=== PATIENT | male | born 1980 ===

== ENCOUNTER 2016-09-19 18:08 | Emergency (ER) | payer OTHER ==
[2016-09-19] MEDS ORDERED: Tetan/Diph/Pertus SYR(Tdap)* 0.5 ML SYR(BOOSTRIX) use SYR IM ONE (19:13)
--- NOTE | 2016-09-19 20:59 | UC ---
General HPI - HPI Summary HPI Summary: SMALL SHARP PEBBLE PUNCTURED HEEL OF RIGHT FOOT 1HR [employer]. LAST TETANUS STATUS UNKNOWN. - History of Current Complaint Chief Complaint: UCLowerExtremity Stated Complaint: SKIN COMPLAINT Time Seen by Provider: 09/19/16 19:04 Hx Obtained From: Patient Onset/Duration: Sudden Onset, Lasting Hours, Resolved Onset Severity: Mild Current Severity: Mild Pain Intensity: 0 Associated Signs & Symptoms: Positive: Trauma - Allergy/Home Medications Allergies/Adverse Reactions: Allergies Allergy/AdvReac Type Severity Reaction Status Date / Time No Known Allergies Allergy Verified 09/19/16 19:03 Home Medications: Home Medications NK [No Home Medications Reported] 09/19/16 [History Confirmed 09/19/16] PMH/Surg Hx/FS Hx/Imm Hx Previously Healthy: Yes - Surgical History Surgical History: None - Family History Known Family History: Negative: Blood Disorder - Social History Occupation: Employed Full-time Lives: With Family Alcohol Use: None Substance Use Type: None Smoking Status (MU): Never Smoked Tobacco Review of Systems Constitutional: Negative Skin: Other - PW HEEL OF RIGHT FOOT Eyes: Negative ENT: Negative Respiratory: Negative Cardiovascular: Negative Gastrointestinal: Negative Genitourinary: Negative Motor: Negative Neurovascular: Negative Musculoskeletal: Negative Neurological: Negative Psychological: Negative All Other Systems Reviewed And Are Negative: Yes Physical Exam Triage Information Reviewed: Yes Appearance: Well-Appearing, No Pain Distress, Well-Nourished Vital Signs: Initial Vital Signs Temp 98.1 F 09/19/16 19:00 Pulse 57 09/19/16 19:00 Resp 16 09/19/16 19:00 BP 114/68 09/19/16 19:00 Pulse Ox 100 09/19/16 19:00 Vital Signs Reviewed: Yes Eye Exam: Normal ENT Exam: Normal ENT: Positive: Normal ENT inspection, Hearing grossly normal, TMs normal Dental Exam: Normal Neck exam: Normal Respiratory Exam: Normal Respiratory: Positive: Chest non-tender, Lungs clear, Normal breath sounds, No respiratory distress, No accessory muscle use Cardiovascular Exam: Normal Cardiovascular: Positive: RRR, No Murmur Abdominal Exam: Normal Musculoskeletal Exam: Normal Neurological Exam: Normal Psychological Exam: Normal Skin: Positive: Other - PUNCTURE WOUND RIGHT HEEL Course/Dx - Differential Dx - Multi-Symptom Differential Diagnoses: Other - TETANUS UNKNOWN Provider Diagnoses: PUNCTURE WOUND RIGHT HEEL; TETANUS PROPHYLAXIS Discharge - Discharge Plan Condition: Stable Disposition: HOME Patient Education Materials: Diphtheria/Pertussis/Tetanus Vaccine (By injection ), Puncture Wound (ED) Referrals: Hannah Nguyen MD [Primary Care Provider] - Images Feet (Multiple View): 1 - SMALL PUNCTURE WOUND HERE
== END 2016-09-19 19:27 | disposition home or self-care (01) ==
LOC: UCEAST 18:08
DX: S91.341A Puncture wound with foreign body, right foot, initial encounter (principal); W26.8XXA Contact with other sharp object(s), not elsewhere classified, initial encounter; Z23 Encounter for immunization
CPT/HCPCS: 90471; 90715; 99211; G0463